=== PATIENT | male | born 1945 | race Caucasian/White ===

== ENCOUNTER 2016-11-29 09:52 | Outpatient (CLI) | payer MEDICARE ==
[2016-11-29 12:28] LABS: Hematocrit 43.3 % (42.0-52.0); Mean Platelet Volume 8.1 fL (7.4-10.4); Red Blood Cell (RBC) Count 4.97 mill/uL (4.70-6.10); White Blood Cell (WBC) Count 7.4 thou/uL (4.8-10.8)
[2016-11-29 12:31] LABS: Prothrombin Time 13.3 SEC (12.0-14.7)
[2016-11-29 12:41] LABS: Anion Gap 17 mmol/L (10-20); BUN (Urea Nitrogen) 18 mg/dL (8.4-25.7); Calc. Creatinine Clearance 0 mL/min (70-130); Calcium 9.9 mg/dL (7.8-10.44); Carbon Dioxide 26 mmol/L (23-31); Chloride 101 mmol/L (98-107); Estimated GFR-MDRD 44
[2016-11-29 13:05] LABS: Bilirubin Negative (Negative); Blood, Urine Trace (Negative); Glucose, Urine (Dipstick) Negative (Negative); Ketone, Urine Trace mg/dL (Negative); Nitrite Negative (Negative); Protein, Urine (Dipstick) Negative (Neg-Trace)
[2016-11-29 13:10] LABS: Bacteria/HPF None Seen HPF (None Seen); Hyaline Casts/LPF 4-6 HYALINE CAST LPF (0-3 Hyaline); RBC/HPF 0-3 HPF (0-3); Squamous Epithelial 0-3 HPF (0-3)
--- NOTE | 2016-11-29 14:57 | CT ---
CT ABDOMEN AND PELVIS PERFORMED WITHOUT CONTRAST ENHANCEMENT: HISTORY: Right flank pain. FINDINGS: ABDOMEN: The lung bases show some linear atelectasis in both bases. A small hiatal hernia is noted . The liver, spleen, pancreas, and gallbladder regions appear unremarkable on this noncontrast study. The right and left adrenal glands are normal in appearance. There are numerous bilateral punctate r enal calculi and right-sided hydronephrosis and hydroureter, related to two calculi at the right ure terovesical junction. One is 1 to 2 mm in size. The other measures approximately 4 mm. There is right-sided hydronephrosis and hydroureter related to this. There is no significant periaortic or mesenteric adenopathy. PELVIS: A fat-containing paraumbilical hernia is noted. There is some sigmoid diverticulosis noted . The appendix is normal. IMPRESSION: Bilateral renal calculi with right-sided hydronephrosis and hydroureter, related to two calculi loca nathen at the right ureterovesical junction. POS: [facility]
--- NOTE | 2016-11-29 16:48 | EKG ---
Test Reason : Blood Pressure : / mmHG Vent. Rate : 073 BPM Atrial Rate : 073 BPM P-R Int : 182 ms QRS Dur : 090 ms QT Int : 392 ms P-R-T Axes : 039 006 022 degrees QTc Int : 431 ms Normal sinus rhythm Inferior infarct , age undetermined Abnormal ECG When compared with ECG of 20-JAN-2016 07:05, Inferior infarct is now Present Confirmed by DR. Milka GLASER ([id number]) on 11/29/2016 4:47:56 PM Referred By: ROGERIO Confirmed By:DR. Milka GLASER
[2016-12-02 13:16] LABS: CA Oxalate Monohydrate 97 % (.); Color Brown (.)
== END 2016-11-29 09:53 | disposition home or self-care (01) ==
LOC: CT 09:52
PROVIDERS: ATTEND Urology
DX: N13.2 Hydronephrosis with renal and ureteral calculous obstruction (principal)
CPT/HCPCS: 74176; 80048; 81001; 82365; 85027; 85610; 85730; 87086; 88300; 93005; 93010

== ENCOUNTER 2016-12-01 07:15 | Day surgery (SDC) | payer MEDICARE ==
[2016-11-29 10:19] VITALS: BMI 28.7
[2016-12-01] MEDS ORDERED: Iothalamate Meglumine 60% 50 ML VIAL FS ONE (08:09)
[2016-12-01] MEDS ORDERED: Levofloxacin 500 mg/D5W 100 ml Premix Bag ONE (09:00)
--- NOTE | 2016-12-01 09:36 | RAD ---
RADIOGRAPH ABDOMEN ONE VIEW SUPINE: Date: 12-01-16 History: Bilateral calculus of kidney. Comparison: No prior KUBs. FINDINGS: There are many small bilateral renal calculi, a few mm in size each. Bowel gas pattern is normal. No evidence of organomegaly. Multiple tiny calcifications in the left hemipelvis represent phleboliths plus a prostatic calcification. There is an approximately 3 mm calcification in the right hemipelvi s that corresponds to the calculus at the right UVJ demonstrated on the CT of 11-29-16. IMPRESSION: 1. A 3 mm obstructing calculus at the right ureterovesical junction. 2. Bilateral nephrolithiasis (ICD-10 terminology: Bilateral calculus of kidney). POS: [facility]
[2016-12-01] MEDS ORDERED: Fentanyl 100 MCG/2 ML VIAL ONE (10:23)
[2016-12-01] MEDS ORDERED: ePHEDrine/0.9% NaCl/PF SYRINGE 50 mg/10 ml ONE (10:43)
[2016-12-01] MEDS ORDERED: Ondansetron HCl/PF 4 MG/2 ML Vial ONE (10:43)
[2016-12-01] MEDS ORDERED: Succinylcholine Chloride 20 MG/ML 10 ml SYRINGE FS ONE (10:43)
[2016-12-01] MEDS ORDERED: Propofol 200 MG/20 ML VIAL ONE (10:43)
[2016-12-01] MEDS ORDERED: Metoclopramide HCl 10 MG/2 ML VIAL ONE (10:43)
[2016-12-01] MEDS ORDERED: SUGAMMADEX SODIUM 500 MG/5 ML VIAL ONE (11:47)
[2016-12-01] MEDS ORDERED: Phenazopyridine HCl 97.5 MG TABLET ONE (12:08)
--- NOTE | 2016-12-01 12:58 | OP ---
DATE OF SERVICE: 12/01/2016 PREOPERATIVE DIAGNOSES: 1. A 71-year-old male with history of right distal ureteral calculi 4 mm, 1 mm at the level of the UVJ with failed medical expulsion therapy. 2. Multiple bilateral renal lithiasis. Right renal calculi punctate approximately 15 in number, largest approximately 2-3 mm in the right mid to lower pole, left approximately 12 punctate renal lithiasis, left upper pole 3 mm , left lower pole 6 mm x 2. 3. History of bilobar hyperplasia of the prostate, status post prostate biopsy negative for malignancy due to elevated PSA. POSTOPERATIVE DIAGNOSES: 1. A 71-year-old male with history of right distal ureteral calculi 4 mm, 1 mm at the level of the UVJ with failed medical expulsion therapy. 2. Multiple bilateral renal lithiasis. Right renal calculi punctate approximately 15 in number, largest approximately 2-3 mm in the right mid to lower pole, left approximately 12 punctate renal lithiasis, left upper pole 3 mm , left lower pole 6 mm x 2. 3. History of bilobar hyperplasia of the prostate, status post prostate biopsy negative for malignancy due to elevated PSA. PROCEDURES: Cystoscopy, right retrograde pyelogram, balloon dilation of the right distal ureter, basket extraction of distal ureteral calculi x2, flexible ureteroscopy, pyeloscopy, laser lithotripsy of small renal calculi, 6 x 26 double-J ureteral stent placement with distal tail in situ. SURGEON: Anika Leung D.O. ANESTHESIA: General. COMPLICATIONS: None apparent. SPECIMEN: Stones for chemical analysis. INTRAOPERATIVE FINDINGS: 1. Wide caliber bulbar urethral stricture approximately 18-20 [place], nonobstructing. 2. Bilobar hyperplasia, moderate to severe obstruction. 3. Bladder without evidence of lesions, no bladder stones. 4. Right distal ureteral calculi x2, multiple Hira plaque consistent with recurrent stone former. SURGEON: Anika Leung D.O. ANESTHESIA: General. COMPLICATIONS: None apparent. DISPOSITION: To the recovery room in stable condition. SPECIMEN: Stone for chemical analysis. INDICATIONS FOR THE PROCEDURE AND HISTORY: Mr. Taylor is a 71-year-old male with history of gout, diabetes, hypertension, who presented for evaluation of right flank pain as he was travelling in the [place] region and had a CT scan at an outside region demonstrating multiple renal lithiasis with right distal ureteral calculi. The patient had passed a small stone, unlikely the stone presenting, restaging CT demonstrated right distal ureteral calculi x2, 4 mm, 1 mm respectively with multiple bilateral renal calculi, dimensions as above. The patient desired to proceed with ureteroscopy, laser lithotripsy due to failed medical expulsion therapy. Risks and complications including, but not limited to, bleeding, pain, infection, injury to adjacent organs, urosepsis reviewed. All questions were answered to his satisfaction and he desired to proceed. DESCRIPTION OF THE PROCEDURE: After an informed consent is signed, the patient is taken to the operating room, placed in a dorsal lithotomy position with the genital area prepped and draped in the usual surgical sterile fashion. A 21- [place]gas[place] cystoscope was utilized, which demonstrated wide caliber bulbar stricture approximately 18 [place], which I was able to pass without difficulty. Moderate to severe obstructing bilobar hyperplasia of the prostate was noted. Bladder was entered with no evidence of bladder stone. UO's are approximately 5 mm from the bladder neck. Upon placing an open-ended catheter, wire to intubate the right UO small punctate stone did exit the UO; however, this is not the stone nidus that is consistent with the CT scan. It required an angle Glidewire to intubate the right ureter due to the angle, this was passed to the level of the right upper pole without difficulty and subsequently switched to a 0.35 sensor wire. We did then dilate the distal ureter, ureteral orifice with a 12 [place] 4 cm [employer] balloon dilator. Subsequently, we performed a rigid ureteroscope, which demonstrated the stone nidus a 4 mm, which was basket extracted uneventfully as the ureter was dilated. We then surveyed the ureter distally which demonstrated no further stone debris with the rigid ureteroscope. A 0.35 Super Stiff wire was then placed into the right upper pole, and at this time, an 11/13 [place]que x 46 cm navigator was passed to the level of the proximal ureter and we surveyed the collecting system as he has multiple stones. Most of the stones were unable to be treated as they were within the renal papilla consistent with Hira's plaques. I did see 3 mm stone nidus which was laser lithotripsied with 200 micron laser fiber at dust dust-like setting. There appeared to be some clot at the level of the wire in the upper pole. I did extract the clot with a 0 tip nitinol basket. The wire did traverse somewhat into the renal papilla; however, no active bleeding or oozing was appreciated. A 6 x 26 double-J ureteral stent was then passed without difficulty with the proximal coil in the mid to lower pole, adequate redundancy in the bladder. He tolerated the procedure well. He will follow up with me next for a cysto stent pull. A KUB will be obtained one hour prior to appointment. The patient will be discharged with [place] refill 7.5/325 one to two every 6-8 hours p.r.n. He is to continue his Flomax, Avodart, AZO p.r.n., Colace p.r.n., ciprofloxacin until followup appointment. KATHERINE
--- NOTE | 2016-12-01 16:00 | RAD ---
RETROGRADE IVP: History: 71-year-old male with history of additional right ureteral calculus. FINDINGS: Multiple portable fluoroscopic spot images are presented for interpretation. Initial patient's librarian films demonstrates what is probably distal right ureteral calculus. A small amount of contrast is injected into the right ureter but is not completely filled. Following contrast injectio n a wire was placed and a right ureteral stent was placed. IMPRESSION: Probable distal right ureteral calculus on the patient's librarian film. Placement of a right ureteral stent. POS: [facility]
== END 2016-12-01 13:35 | disposition home or self-care (01) ==
LOC: SDC 07:15
PROVIDERS: ATTEND Urology
PROC: 0TF38ZZ Fragmentation in Right Kidney Pelvis, Via Natural or Artificial Opening Endoscopic (ICD-10-PCS; principal; 2016-12-01)
PROC: 0T768DZ Dilation of Right Ureter with Intraluminal Device, Via Natural or Artificial Opening Endoscopic (ICD-10-PCS; 2016-12-01)
PROC: 0TC08ZZ Extirpation of Matter from Right Kidney, Via Natural or Artificial Opening Endoscopic (ICD-10-PCS; 2016-12-01)
PROC: 0TH98YZ Insertion of Other Device into Ureter, Via Natural or Artificial Opening Endoscopic (ICD-10-PCS; 2016-12-01)
DX: N20.2 Calculus of kidney with calculus of ureter (principal); N35.9 Urethral stricture, unspecified; N40.0 Benign prostatic hyperplasia without lower urinary tract symptoms; M10.9 Gout, unspecified; E11.9 Type 2 diabetes mellitus without complications; H91.90 Unspecified hearing loss, unspecified ear; I10 Essential (primary) hypertension; Z79.84 Long term (current) use of oral hypoglycemic drugs; Z79.899 Other long term (current) drug therapy; Z98.890 Other specified postprocedural states; Z87.442 Personal history of urinary calculi; Z87.891 Personal history of nicotine dependence
CPT/HCPCS: 52344; 52356; 74000; 74420; 82365; 88300; C1758; C1769; J1956; J2405; J2704; J2765; J3010; Q9961

== ENCOUNTER 2016-12-09 07:15 | Outpatient (CLI) | payer MEDICARE ==
--- NOTE | 2016-12-09 09:50 | RAD ---
FRONTRAL VIEW ABDOMEN; Date: 12/09/16 INDICATION: Ureteral stone. FINDINGS: There is a double-J right ureteral stent appropriately positioned on the provided frontal view. Ther e are round densities overlying the pelvis. Multiple calcifications overlie the left renal shadow. R ight renal shadow is largely obscured by bowel content. IMPRESSION: 1. Interval placement of right ureteral stent when comparing to 12/01/16. 2. Redemonstration of multiple left renal calculi. 3. Previously described punctate density at the right hemipelvis is not visualized on this exam. POS: [facility]
== END 2016-12-09 07:16 | disposition home or self-care (01) ==
LOC: RAD 07:15
PROVIDERS: ATTEND Urology
DX: N20.1 Calculus of ureter (principal); N20.0 Calculus of kidney
CPT/HCPCS: 74000

== ENCOUNTER 2017-07-05 13:17 | Outpatient (CLI) | payer MEDICARE ==
--- NOTE | 2017-07-05 15:36 | RAD ---
FRONTAL VIEW ABDOMEN KUB SERIES 2 VIEWS: Date: 07/05/17 INDICATION: Calculus of kidney. Reference made to 12/09/16. FINDINGS: There has been removal of the prior right ureteral stent. Numerous calcifications overlie each renal shadow. There are stable appearing calcific densities of the left hemipelvis, which may be related to phleboliths. Moderate retained fecal material in the colon is present. There is osseous degenerative change. IMPRESSION: Numerous calcific densities overlying each renal shadow, indicating nephrolithiasis. POS: [facility]
--- NOTE | 2017-07-05 15:38 | ULT ---
RENAL ULTRASOUND: History: Renal calculus. Correlation: Abdominal CT 11-29-16 which showed numerous bilateral renal calculi. FINDINGS: Both kidneys measure approximately 10 cm in length. Cortical echogenicity and cortical thickness appe ars normal. No evidence of hydronephrosis. There are numerous echogenic foci seen in the upper collec ting structures of both kidneys which correspond to the prior CT and are consistent with numerous lia ateral renal calculi. The urinary bladder shows mild distention. I cannot exclude mild bladder wall thickening. The prostat e appears to be enlarged. Ureteral jets were identified bilaterally within the bladder. IMPRESSION: Evidence of numerous bilateral renal calculi corresponding to the previous CT. POS: [facility]
== END 2017-07-05 13:18 | disposition home or self-care (01) ==
LOC: ULT 13:17
PROVIDERS: ATTEND Urology
DX: Z12.5 Encounter for screening for malignant neoplasm of prostate (principal); N20.0 Calculus of kidney
CPT/HCPCS: 74018; 76770; 80048; 81003; 83970; 84550; 87086; G0103

== ENCOUNTER 2018-05-30 10:57 | Outpatient (CLI) | payer MEDICARE ==
--- NOTE | 2018-05-30 12:18 | RAD ---
SUPINE ABDOMEN: HISTORY: Benign prostate hyperplasia. UTI symptoms. COMPARISON: 07/05/2017 FINDINGS: There is a large amount of stool throughout the colon. The bowel content obscures renal outlines. T here are numerous small calcifications overlying both kidneys, which appear stable in size and number when compared to the prior study. Peripheral phleboliths in the pelvis are stable. IMPRESSION: Renal calcifications appear stable from prior examination. POS: [facility]
[2018-05-30 12:48] LABS: Bilirubin Negative (Negative); Blood, Urine Negative (Negative); Clarity CLEAR (Clear); Glucose, Urine (Dipstick) Negative (Negative); Leukocyte Negative (Negative); Nitrite Negative (Negative); Protein, Urine (Dipstick) Trace mg/dL (Neg-Trace); Specific Gravity, Urine 1.012 (1.002-1.036); pH, Urine 6.5 (5.0-9.0)
[2018-05-30 12:50] LABS: Bacteria/HPF None Seen HPF (None Seen); Hyaline Casts/LPF 0-3 HYALINE CAST LPF (0-3 Hyaline); RBC/HPF 0-3 HPF (0-3); Squamous Epithelial 0-3 HPF (0-3); WBC/HPF 0-3 HPF (0-3)
[2018-05-30 13:00] LABS: Anion Gap 15 mmol/L (10-20); BUN (Urea Nitrogen) 12 mg/dL (8.4-25.7); Calc. Creatinine Clearance 0 mL/min (70-130); Calcium 10.4 mg/dL (7.8-10.44); Carbon Dioxide 26 mmol/L (23-31); Chloride 105 mmol/L (98-107); Estimated GFR-MDRD 62; Glucose 106 mg/dL (83-110); Sodium 142 mmol/L (136-145)
== END 2018-05-30 10:58 | disposition home or self-care (01) ==
LOC: RAD 10:57
PROVIDERS: ATTEND Urology
DX: N40.1 Benign prostatic hyperplasia with lower urinary tract symptoms (principal); R39.14 Feeling of incomplete bladder emptying; N28.89 Other specified disorders of kidney and ureter
CPT/HCPCS: 74018; 80048; 81001; 87086

== ENCOUNTER 2018-07-04 17:46 | Outpatient (CLI) | payer MEDICARE ==
[2018-07-04 18:55] LABS: Hemoglobin 14.2 g/dL (14.0-18.0); Mean Corpuscular HGB CONC 33.2 g/dL (32.0-36.0); Mean Corpuscular Volume 87.5 fL (78.0-98.0); Mean Platelet Volume 7.9 fL (7.4-10.4); Platelet Count 162 thou/uL (130-400); RBC Distribution Width 12.4 % (11.5-14.5); White Blood Cell (WBC) Count 7.2 thou/uL (4.8-10.8)
[2018-07-04 19:04] LABS: Prothrombin Time 12.9 SEC (12.0-14.7)
[2018-07-04 19:13] LABS: Anion Gap 15 mmol/L (10-20); BUN (Urea Nitrogen) 18 mg/dL (8.4-25.7); Calc. Creatinine Clearance 0 mL/min (70-130); Calcium 10.1 mg/dL (7.8-10.44); Carbon Dioxide 23 mmol/L (23-31); Chloride 106 mmol/L (98-107); Estimated GFR-MDRD 49; Glucose 132 mg/dL (83-110); Potassium 4.1 mmol/L (3.5-5.1); Sodium 140 mmol/L (136-145)
== END 2018-07-04 17:47 | disposition home or self-care (01) ==
LOC: LABBT 17:46
PROVIDERS: ATTEND Urology
DX: Z01.818 Encounter for other preprocedural examination (principal); N20.1 Calculus of ureter
CPT/HCPCS: 80048; 81001; 85027; 85610; 85730; 87086; 93005; 93010

== ENCOUNTER 2018-07-05 08:47 | Day surgery (SDC) | payer MEDICARE ==
[2018-07-04 17:56] VITALS: BMI 28.3
[2018-07-05] MEDS ORDERED: Levofloxacin 500 mg/D5W 100 ml Premix Bag ONE (10:37)
[2018-07-05] MEDS ORDERED: Iothalamate Meglumine 60% 50 ML VIAL FS ONE (11:34)
[2018-07-05] MEDS ORDERED: Fentanyl 100 MCG/2 ML VIAL ONE (11:45)
[2018-07-05] MEDS ORDERED: Phenazopyridine HCl 97.5 MG TABLET ONE (12:42)
[2018-07-05] MEDS ORDERED: Lidocaine 1% PF 5 ML VIAL ONE (14:56)
[2018-07-05] MEDS ORDERED: Ondansetron PF 4 MG/2 ML Vial ONE (14:56)
[2018-07-05] MEDS ORDERED: PROPOFOL 200 MG/20 ML VIAL ONE (14:56)
--- NOTE | 2018-07-05 15:19 | RAD ---
LEFT RETROGRADE PYELOGRAM: Date: 07/05/18 HISTORY: Stent and renal stones. FINDINGS/IMPRESSION: Two spot fluoroscopic images from a left-sided retrograde pyelogram demonstrate contrast opacificatio n of the pelvicaliceal system and portions of the ureter on the left and placement of a left ureteral stent. POS: [facility]
--- NOTE | 2018-07-05 19:21 | OP ---
DATE OF PROCEDURE: 07/05/2018 PREOPERATIVE DIAGNOSES: 1. A 73-year-old male with history of recurrent kidney stones with left flank pain due to 6 mm left distal ureteral calculi at the level of S2-S3 ureter at an outside facility. 2. Bilateral nonobstructing multiple renal calculi, dimensions measuring about 2 to [address] demonstrated left punctate renal lithiasis about 12 in number, which are mostly punctate upper pole 3 mm, lower pole 6 mm, about 15 punctate stones in the right kidney, largest measuring right mid pole 2 to 3 mm. 3. Benign prostatic hypertrophy. POSTOPERATIVE DIAGNOSES: 1. A 73-year-old male with history of recurrent kidney stones with left flank pain due to 6 mm left distal ureteral calculi at the level of S2-S3 ureter at an outside facility. 2. Bilateral nonobstructing multiple renal calculi, dimensions measuring about 2 [address] demonstrated left punctate renal lithiasis about 12 in number, which are mostly punctate upper pole 3 mm, lower pole 6 mm, about 15 punctate stones in the right kidney, largest measuring right mid pole 2 to 3 mm. 3. Benign prostatic hypertrophy. PROCEDURES PERFORMED: Cystoscopy, left retrograde pyelogram, 6 x 26 double-J ureteral stent. ANESTHESIA: General. COMPLICATIONS: None apparent. DISPOSITION: To recovery room in stable condition. INTRAOPERATIVE FINDINGS: 1. Subtle filling defect in the level of S2, mid SI joint consistent with stone seen on CT at an outside facility with mild hydronephrosis. 2. Bilobar hyperplasia of the prostate with [id number] obstruction with no evidence of intravesical median lobe, ureteral orifices about 3 mm away from the bladder neck. 3. Nonobstructing distal penile urethral stricture about 14/16-[place] caliber, second bulbar stricture about 14 /16-[place] caliber in which the scope was able to be passed without difficulty. Subsequent 16-[place] catheter and now passed with ease. INDICATIONS FOR PROCEDURE AND HISTORY: Mr. Taylor is a 73-year-old male with history of BPH, history of elevated PSA, prostate biopsy negative for malignancy on dual medical therapy with history of recurrent kidney stones. He has numerous bilateral renal stones, most of which are punctate as dimensions above. He was on surveillance. He presented to an outside facility in [place], [place], and found to have a 6 mm left distal ureteral stone at the level of the S2-S3 ureter causing moderate hydronephrosis with bilateral renal lithiasis measuring 2 to [address] scan. He presents today for cysto stent placement. As there is no urinalysis culture available, informed patient that we will stent due to discomfort and will be performing a staged ureteroscopy, laser lithotripsy at a later date. Risks and complications of the procedure were reviewed with him in detail including, but not limited to, bleeding, pain, infection, injury to adjacent organs, urosepsis. Questions answered to his satisfaction and desired to proceed without reservation. DESCRIPTION OF PROCEDURE: After an informed consent was signed, the patient was taken to the operating room, placed in a dorsal lithotomy position with the genital area prepped and draped in the usual surgical sterile fashion. A 21-[place] cystoscope was passed. There was some tortuosity of the proximal penile urethra. However, we passed the scope without difficulty. At the level of distal penile urethra, there was a 14/16-[place] caliber stricture, which I was able to pass without difficulty, second bulbar stricture same caliber 14/16-[place]. Scope was easily maneuvered and not with ease. Prostatic urethra demonstrated [id number] obstruction with bilobar hyperplasia with high median bar. There was no intravesical median lobe. Ureteral orifices are about 3 mm away from the bladder neck. There was some oozing from the prostate with the passage of the scope, however, not hindering any visualization. The UOs were identified in normal anatomical location. A 5-[place] open-ended catheter was utilized to perform retrograde pyelogram, which demonstrated mild dilation of the proximal ureter and hydronephrosis mild. There was a subtle filling defect at the S2-S3 ureter consistent with stone. A 0.35 Sensor wire was passed into the left mid pole and a 6 x 26 double-J ureteral stent was passed. There was some resistance passing the stent, especially the very distal end, however, it did pass with adequate coil in the bladder and the left mid to upper pole. He tolerated the procedure well and transported to the recovery room in stable condition. He is discharged with [place] 5/325 #30, 1 to 2 p.o. q.6 hours p.r.n., ciprofloxacin one p.o. b.i.d. x7 days, Colace b.i.d., Azo p.r.n. We will follow his urine culture, he will see me on Tuesday, July 10. If urine culture negative, we will proceed with ureteroscopy, laser lithotripsy, tentatively scheduled for next Tuesday. Job ID: [id number] [facility]ITALSwapna
== END 2018-07-05 14:20 | disposition home or self-care (01) ==
LOC: SDC 08:47
PROVIDERS: ATTEND Urology
PROC: 0T778DZ Dilation of Left Ureter with Intraluminal Device, Via Natural or Artificial Opening Endoscopic (ICD-10-PCS; principal; 2018-07-05)
DX: N13.2 Hydronephrosis with renal and ureteral calculous obstruction (principal); N40.1 Benign prostatic hyperplasia with lower urinary tract symptoms; N13.8 Other obstructive and reflux uropathy; N35.912 Unspecified bulbous urethral stricture, male; M10.9 Gout, unspecified; I12.9 Hypertensive chronic kidney disease with stage 1 through stage 4 chronic kidney disease, or unspecified chronic kidney disease; E11.22 Type 2 diabetes mellitus with diabetic chronic kidney disease; N18.3 Chronic kidney disease, stage 3 (moderate); H91.90 Unspecified hearing loss, unspecified ear; Z79.84 Long term (current) use of oral hypoglycemic drugs; Z79.899 Other long term (current) drug therapy
CPT/HCPCS: 52332; 74420; C1758; C1769; J1956; J2001; J2405; J2704; J3010; Q9961

== ENCOUNTER 2018-07-10 15:48 | Outpatient (CLI) | payer MEDICARE ==
[2018-07-10 17:17] LABS: Anion Gap 17 mmol/L (10-20); BUN (Urea Nitrogen) 16 mg/dL (8.4-25.7); Calc. Creatinine Clearance 0 mL/min (70-130); Calcium 10.3 mg/dL (7.8-10.44); Carbon Dioxide 24 mmol/L (23-31); Chloride 103 mmol/L (98-107); Estimated GFR-MDRD 57; Glucose 116 mg/dL (83-110); Potassium 4.3 mmol/L (3.5-5.1); Sodium 140 mmol/L (136-145)
[2018-07-10 17:18] LABS: Bilirubin Small (Negative); Blood, Urine Large (Negative); Clarity CLOUDY (Clear); Glucose, Urine (Dipstick) Negative (Negative); Leukocyte Small (Negative); Specific Gravity, Urine 1.022 (1.002-1.036)
[2018-07-10 17:24] LABS: Bacteria/HPF None Seen HPF (None Seen); Hyaline Casts/LPF 0-3 HYALINE CAST LPF (0-3 Hyaline); Pathc Cast-AUWi Flag 0.27 (0-2.49); RBC/HPF GREATER THAN 50-TNTC HPF (0-3); Squamous Epithelial 0-3 HPF (0-3)
[2018-07-10 17:42] LABS: Nitrite Unable to Interpret (Negative); Protein, Urine (Dipstick) Unable to Interpret mg/dL (Neg-Trace)
== END 2018-07-10 15:49 | disposition home or self-care (01) ==
LOC: LABBT 15:48
PROVIDERS: ATTEND Urology
DX: Z01.812 Encounter for preprocedural laboratory examination (principal); N40.1 Benign prostatic hyperplasia with lower urinary tract symptoms; M10.9 Gout, unspecified; R39.14 Feeling of incomplete bladder emptying; E13.9 Other specified diabetes mellitus without complications; Z87.442 Personal history of urinary calculi; Z12.5 Encounter for screening for malignant neoplasm of prostate; N35.919 Unspecified urethral stricture, male, unspecified site; N20.2 Calculus of kidney with calculus of ureter
CPT/HCPCS: 80048; 81001; 87086

== ENCOUNTER 2018-07-12 05:58 | Day surgery (SDC) | payer MEDICARE ==
[2018-07-10 16:10] VITALS: BMI 28.6
[2018-07-12] MEDS ORDERED: Fentanyl 100 MCG/2 ML VIAL ONE ×3 (06:20→10:27)
[2018-07-12] MEDS ORDERED: Iothalamate Meglumine 60% 50 ML VIAL FS ONE (06:51)
[2018-07-12] MEDS ORDERED: Levofloxacin 500 mg/D5W 100 ml Premix Bag ONE (07:11)
--- NOTE | 2018-07-12 08:37 | RAD ---
KUB: COMPARISON: 05/30/2018. HISTORY: Kidney stones. FINDINGS: A single view of the abdomen shows a nonspecific, nonobstructed bowel gas pattern. There is a left u reteral stent. Calcifications project over both renal shadows measuring up to 4 mm in size. There i s a questionable 4 mm calcification adjacent to the distal aspect of the left ureteral stent. This i s only seen on 1 view and could be artifactual. IMPRESSION: 1. Bilateral nephrolithiasis. 2. Possible left distal ureteral calcification. POS: [facility]
--- NOTE | 2018-07-12 09:37 | RAD ---
Exam: Retrograde pyelogram: HISTORY: Bilateral renal calculi. Left ureteral stent. COMPARISON: 07/05/2018. FINDINGS: The previously noted small left ureteral calculus is not definitely distinctly identified. Left urete ral stent placement. Bilateral renal calculi. Continued short-term follow-up. IMPRESSION: Left ureteral manipulation and stent replacement.
[2018-07-12] MEDS ORDERED: Phenazopyridine HCl 97.5 MG TABLET ONE (10:24)
[2018-07-12] MEDS ORDERED: HYDROcodone/Acetaminophen 5/325 mg Tablet ONE (11:19)
--- NOTE | 2018-07-12 14:18 | OP ---
DATE OF PROCEDURE: 07/12/2018 PREOPERATIVE DIAGNOSES: 1. A 73-year-old male with history of recurrent kidney stone, presented with a left 6 mm mid ureteral calculi at the level of S2-S3 ureter. 2. History of multiple bilateral renal calculi: Prior CT demonstrating approximately 15 stone nidus in the right kidney, largest stones measuring 2 to 3 mm, largest in the lower pole about 6 mm, left multiple renal lithiasis x2, punctate 2 to 3 mm, lower pole 6 mm. Prostate volume 85 g on transrectal ultrasound. 3. History of nonobstructing multiple bulbar stricture. 4. Bilobar hyperplasia of the prostate. POSTOPERATIVE DIAGNOSES: 1. A 73-year-old male with history of recurrent kidney stone, presented with a left 6 mm mid ureteral calculi at the level of S2-S3 ureter. 2. History of multiple bilateral renal calculi: Prior CT demonstrating approximately 15 stone nidus in the right kidney, largest stones measuring 2 to 3 mm, largest in the lower pole about 6 mm, left multiple renal lithiasis x2, punctate 2 to 3 mm, lower pole 6 mm. Prostate volume 85 g on transrectal ultrasound. 3. History of nonobstructing multiple bulbar stricture. 4. Bilobar hyperplasia of the prostate. PROCEDURE PERFORMED: Cystoscopy, left retrograde pyelogram, 6 x 26 double-J ureteral stent exchange, retrograde pyelogram, rigid ureteroscopy, laser lithotripsy of mid ureteral calculi, basket extraction of stone nidus, flexible pyeloscopy, laser lithotripsy of multiple left renal calculi, basket extraction of stone fragments. ANESTHESIA: General. COMPLICATIONS: None apparent. SPECIMEN: Multiple stone fragments for chemical analysis. INTRAOPERATIVE FINDINGS: 1. Bilobar hyperplasia of the prostate, [id number] obstruction. 2. Nonobstructing multiple bulbar urethral stricture, caliber about 14/16-German caliber, able to pass the scope without significant issues. 3. Left mid ureteral calculi at the level of S2-S3 ureter, impacted with mucosal adherence. 4. Multiple left Hira's plaque consistent with recurrent stone former, multiple renal lithiasis, largest in the lower pole about 6 to 8 mm. INDICATIONS FOR PROCEDURE AND HISTORY: Mr. Taylor is a 73-year-old male with history of gout, diabetes, hypertension, BPH, bulbar stricture. He previously underwent ureteroscopy, laser lithotripsy, and was provided a work-in appointment as he presented to an outside facility in [place] and found to have a migrated left distal ureteral stone to level of S2-S3 ureter. He has previous multiple bilateral renal calculi noted. He underwent ureteral stent as urine culture was not finalized for ureteroscopy and presents today for ureteroscopy laser lithotripsy. Risks, complications, and indications of the procedure were reviewed with him in detail including, but not limited to, bleeding, pain, infection, injury to adjacent organs, urosepsis, stricture formation, injury to adjacent organs. Questions answered to his satisfaction. He desired to proceed without reservation. DESCRIPTION OF PROCEDURE: After an informed consent was signed, the patient was taken to the operating room, placed in a dorsal lithotomy position with the genital area prepped and draped in the usual surgical sterile fashion. A 21-German cystoscope was utilized for cystoscopy. Upon entering the urethra, there were again appreciating a large caliber 14/16-German bulbar urethral stricture in which I was able to pass without significant issues at all. Bilobar [id number] obstructing lateral lobes were noted with no evidence of intravesical median lobes. The UOs are about 3 to 4 mm proximal to the bladder neck. The previously placed ureteral stent was removed to the level of the meatus and a 0.035 Sensor wire was passed through the stent into the left upper pole. At this time, a rigid ureteroscopy was performed. As he was passively dilated, I was able to engage the stone at the level of S2-S3 ureter. However, the stone was challenging to treat as it had been impacted, with mucosal adherence. Using 200 micron laser fiber, we laser lithotripsied the stone gently off the mucosa and rendered it free. It did have significant inflammatory, adherence to it. Dust setting was utilized. Stone was rendered free from the mucosa and laser lithotripsied. Basket extraction of the stone nidus was performed. As we cleared his mid ureteral stone, we passed a 10-German dual-lumen access sheath to the level of the proximal ureter and a second safety wire 0.035 Super Stiff was passed. Subsequently, the dual-lumen access sheath was removed and an 11/13-German navigator was passed without difficulty to level of the proximal ureter UPJ. Flexible digital ureteroscope was then passed to the level of the renal pelvis, and we surveyed the collecting system. There were multiple stone nidus in the mid upper and lower pole. Many of the stones were papilla based consistent with Hira's plaque. There were stone nidus in the left mid and lower pole that we treated. The largest stone nidus in the lower pole x2 to 3, each measuring about 4 to 5 mm. I laser lithotripsied these, and basket extracted them. In the upper pole, he did have about 4 to 5 mm stone, which I laser lithotripsied as well. In the mid pole, he had stone nidus that I lasered as well. At the end of the procedure, what remained were dust-like caliber. There were stones that were adherent to the renal papilla. Those that were amenable to be extracted were extracted with a basket atraumatically. There were some stone niduses left; however, these were papilla based or too small to basket extract. We then negotiated our flexible ureteroscope distally down the ureter. There was a stone nidus in the proximal ureter, which we basket extracted rendering the ureter free of stone debris. No evidence of mucosal trauma, perforation was noted. The previous impacted ureteral stone site was without evidence of trauma. Stones were sent for chemical analysis. Bladder emptied. A 6 x 26 double-J ureteral stent was passed over the safety wire. All wires were then removed. Good coil was seen in the bladder and kidney. He tolerated the procedure well and transported to the recovery room in stable condition. He will be discharged with ciprofloxacin until followup appointment, refill for [place] 5/325 #30, Colace, azo [id number]. He is to continue his Avodart and Flomax for BPH. He will have a KUB 1 day before his appointment on Tuesday morning. If no gross evidence of ureteral stone nidus. We will perform cysto stent pull under local on . addendum. Patient unable to void postop. 700 mL of postvoid residual per nursing staff. 16 German Romano catheter was placed by me uneventfully. Attached to leg bag. He was advised to increase his Flomax twice a day continue Avodart. Voiding trial upon cystoscopy stent pull next [facility]: [id number] [facility]
== END 2018-07-12 15:38 | disposition home or self-care (01) ==
LOC: SDC 05:58
PROVIDERS: ATTEND Urology
PROC: 0TF48ZZ Fragmentation in Left Kidney Pelvis, Via Natural or Artificial Opening Endoscopic (ICD-10-PCS; principal; 2018-07-12)
PROC: 0TF78ZZ Fragmentation in Left Ureter, Via Natural or Artificial Opening Endoscopic (ICD-10-PCS; 2018-07-12)
PROC: 0T778DZ Dilation of Left Ureter with Intraluminal Device, Via Natural or Artificial Opening Endoscopic (ICD-10-PCS; 2018-07-12)
DX: N20.2 Calculus of kidney with calculus of ureter (principal); N40.1 Benign prostatic hyperplasia with lower urinary tract symptoms; N13.8 Other obstructive and reflux uropathy; N35.912 Unspecified bulbous urethral stricture, male; M10.9 Gout, unspecified; E78.5 Hyperlipidemia, unspecified; I12.9 Hypertensive chronic kidney disease with stage 1 through stage 4 chronic kidney disease, or unspecified chronic kidney disease; E11.22 Type 2 diabetes mellitus with diabetic chronic kidney disease; N18.3 Chronic kidney disease, stage 3 (moderate); Z79.84 Long term (current) use of oral hypoglycemic drugs; Z79.2 Long term (current) use of antibiotics; Z79.899 Other long term (current) drug therapy
CPT/HCPCS: 74018; 74420; 82365; 88300; C1758; C1769; J1956; J3010; Q9961

== ENCOUNTER 2018-07-19 08:39 | Outpatient (CLI) | payer MEDICARE ==
--- NOTE | 2018-07-19 10:28 | RAD ---
FRONTAL VIEW ABDOMEN AND SUPINE KUB: INDICATIONS: Urolithiasis. Followup. FINDINGS: On one of the two provided views, the prior calcific density is likely present, residing lateral to t he distal course of the left ureteral stent. Therefore, this is favored to reside external to the ur eter, on the basis of this exam. Multiple calcifications overlying each renal shadow are again seen. Phleboliths overly the inferior left hemipelvis. IMPRESSION: 1. Bilateral nephrolithiasis. 2. Calcific density resides lateral to the distal left ureteral stent and may account for the prior calcification, which was previously seen overlying the course of the left ureteral stent. POS: CET
== END 2018-07-19 08:40 | disposition home or self-care (01) ==
LOC: RAD 08:39
PROVIDERS: ATTEND Urology
DX: N20.0 Calculus of kidney (principal); Z96.0 Presence of urogenital implants
CPT/HCPCS: 74018

== ENCOUNTER 2018-07-19 09:08 | Inpatient (IN) | payer MEDICARE ==
[2018-07-19 10:00] LABS: #Eosinphils 0.3 thou/uL (0.0-0.7); #Lymphocytes 1.3 thou/uL (1.20-3.40); #Monocytes 0.6 thou/uL (0.11-0.59); #Neutrophils 7.6 thou/uL (1.40-6.50); %Basophils 0.1 % (0.0-1.0); %Eosinophils 2.7 % (0.0-10.0); %Lymphocytes 12.9 % (21.0-51.0); %Monocytes 6.2 % (0.0-10.0); %Neutrophils 78.2 % (42.0-75.0); Hemoglobin 15.4 g/dL (14.0-18.0); Mean Corpuscular HGB CONC 34.1 g/dL (32.0-36.0); Mean Corpuscular Volume 85.2 fL (78.0-98.0); Mean Platelet Volume 8.1 fL (7.4-10.4); Platelet Count 186 thou/uL (130-400); RBC Distribution Width 12.3 % (11.5-14.5); Red Blood Cell (RBC) Count 5.32 mill/uL (4.70-6.10); White Blood Cell (WBC) Count 9.7 thou/uL (4.8-10.8)
[2018-07-19] MEDS ORDERED: Morphine 4 MG/ML VIAL ONE (10:04)
[2018-07-19] MEDS ORDERED: Ondansetron PF 4 MG/2 ML Vial ONE (10:04)
--- NOTE | 2018-07-19 10:09 | CT ---
CT STONE PROTOCOL: HISTORY: Left-sided flank pain, kidney stones COMPARISON: 11/29/2016 FINDINGS: Absence of oral and IV contrast reduces the sensitivity of the exam particularly for the evaluation o f solid organs and bowel. Atelectatic changes at the lung bases are again seen. No calcified gallstones are seen. No free air o r free fluid is noted in the abdomen or pelvis. A normal-appearing appendix is noted. There is sigmoid diverticulosis. A small hiatal hernia is present. There are vascular calcifications without e vidence of abdominal aortic aneurysm. Degenerative changes are present in the spine. Bilateral renal calculi are present. There is a left-sided ureteral stent with peripelvic and periure teric inflammatory changes. There is a 8 mm calculus lateral to the distal loop of the left ureteral stent within the urinary bladder. There is [id number] left-sided hydroureteronephrosis . The prostate is enlarged. A Romano catheter is present in the urinary bladder. A small amount of free air is noted in the bladder. IMPRESSION: 1. Left-sided ureteral stent with periureteral inflammatory changes. Clinically correlate for UTI. 2. Bilateral renal calculi. 3. An 8 mm urinary bladder calculus lateral to the distal loop of the left ureteral stent. 4. Prostatic enlargement. 5. Sigmoid diverticulosis. 6. Small hiatal hernia.
[2018-07-19 10:28] LABS: ALT (SGPT) 16 U/L (8-55); AST (SGOT) 18 U/L (5-34); Albumin 4.4 g/dL (3.4-4.8); Alkaline Phosphatase 56 U/L (40-150); Anion Gap 17 mmol/L (10-20); BUN (Urea Nitrogen) 18 mg/dL (8.4-25.7); Bilirubin, Total 0.8 mg/dL (0.2-1.2); Calc. Creatinine Clearance 0 mL/min (70-130); Calcium 10.8 mg/dL (7.8-10.44); Carbon Dioxide 21 mmol/L (23-31); Chloride 103 mmol/L (98-107); Estimated GFR-MDRD 56; Globulin 3.3 g/dL (2.4-3.5); Glucose 129 mg/dL (83-110); Lipase 41 U/L (8-78); Potassium 4.1 mmol/L (3.5-5.1); Protein, Total 7.7 g/dL (5.8-8.1); Sodium 137 mmol/L (136-145)
[2018-07-19 11:00] LABS: Bilirubin Small (Negative); Blood, Urine Large (Negative); Clarity CLOUDY (Clear); Glucose, Urine (Dipstick) Negative (Negative); Leukocyte Moderate (Negative); Nitrite Positive (Negative); Protein, Urine (Dipstick) 300 mg/dL (Neg-Trace)
[2018-07-19 11:03] LABS: Bacteria/HPF None Seen HPF (None Seen); Hyaline Casts/LPF 0-3 HYALINE CAST LPF (0-3 Hyaline); RBC/HPF GREATER THAN 50-TNTC HPF (0-3); Squamous Epithelial 0-3 HPF (0-3)
[2018-07-19] MEDS ORDERED: cefTRIAXone\\ROCEPHIN 1 GM VIAL ONE ×3 (12:12→12:37)
[2018-07-19] MEDS ORDERED: Morphine 2 MG/ML SYRINGE SLOW IVP PRN (13:26)
[2018-07-19] MEDS ORDERED: Morphine 4 MG/ML VIAL SLOW IVP PRN (13:26)
[2018-07-19] MEDS ORDERED: hydrALAZINE 20 MG/ML VIAL SLOW IVP PRN ×2 (13:26)
[2018-07-19] MEDS ORDERED: Bisacodyl 10 MG SUPP PR PRN (13:26)
[2018-07-19] MEDS ORDERED: Phenazopyridine HCl 97.5 MG TABLET PO PRN (13:26)
[2018-07-19] MEDS ORDERED: diphenhydrAMINE 50 MG/ML VIAL IVP PRN (13:26)
[2018-07-19] MEDS ORDERED: Mag-Al 1200 mg/1200 mg/30 ML UDCUP PO PRN (13:26)
[2018-07-19] MEDS ORDERED: HYDROcodone/Acetaminophen 7.5/325 mg Tablet PO PRN ×2 (13:26)
[2018-07-19] MEDS ORDERED: Docusate Sodium 100 MG/10 ML UDCUP PO PRN (13:29)
[2018-07-19] MEDS ORDERED: Dextrose 50% Abboject 50 ML SYRINGE SLOW IVP PRN (13:31)
[2018-07-19] MEDS ORDERED: Insulin Regular 300 UNITS/3 ML VIAL SC PRN (13:31)
[2018-07-19] MEDS ORDERED: Dextrose 5% in Water 1,000 ML IV PRN (13:31)
[2018-07-19] MEDS: Sodium Chloride 0.9% 1,000 ML IV SCH ×2 (15:35→22:59)
[2018-07-19] MEDS: Meropenem 2 GM in Sodium Chloride 0.9% 100 ML IVPB SCH ×2 (16:13→23:00)
[2018-07-19] MEDS: metFORMIN 500 MG TAB PO SCH (16:18)
[2018-07-19] MEDS: HYDROcodone/Acetaminophen 7.5/325 mg Tablet PO PRN (19:08)
--- NOTE | 2018-07-19 19:41 | CON ---
DATE OF CONSULTATION: 07/19/2018 REASON FOR CONSULTATION: History of left lower quadrant abdominal pain, nausea. HISTORY OF PRESENT ILLNESS: Mr. Taylor is a 73-year-old male with history of gout, diabetes, hypertension, BPH with recurrent kidney stones. He was recently worked into my office as he presented to an outside facility and had left flank pain due to left distal ureteral calculi at S2-S3 level with moderate left hydronephrosis. He is known to have multiple bilateral renal calculi measuring caliber about 2 to 6 mm each. The right kidney was without evidence of hydronephrosis. He initially underwent stent. His urine culture was not finalized and subsequently underwent staged ureteroscopy, laser lithotripsy. As he has numerous left renal calculi, he desired treatment of his renal calculi as well. I did proceed treating his multiple renal calculi, laser lithotripsied and basket extracted. He has multiple Hira plaques, consistent with punctate renal nidus and moreover not amenable to treatment as they are in the renal papilla; however, those that were amendable to be treated were treated. He was scheduled for KUB today, with subsequent stent pull tomorrow in my office; however, presented per my request to the emergency room as he called for his complaining of nausea, decreased oral intake, and feeling of malaise, and left lower quadrant and moreover suprapubic discomfort. Of note, after ureteroscopy and laser lithotripsy last week, he was unable to void. 700 mL of postvoid residual was found and therefore he was discharged with an indwelling Romano catheter and advised to increase his Flomax to twice a day. Labs obtained from the emergency room are grossly unremarkable. There is no significant leukocytosis or fever of concern. His lactic acid is within normal limits. UA does demonstrate positive nitrites with no bacteria as he has been on ciprofloxacin prophylactically for stent pull tomorrow. He was provided Rocephin from the emergency room and urine culture obtained. Currently, he was provided pain medication and is comfortable ; however, relates that his left lower quadrant discomfort is returning. He desires to be discharged home; however, I informed him that given his clinical status, it would be prudent to keep him in-house until culture finalized. He agrees. I encouraged him as well due to his history of diabetes. PAST MEDICAL HISTORY: 1. Diabetes; hypertension; hyperlipidemia; chronic kidney disease, followed by Dr. Ashton; gout; hard of hearing; history of multiple stones, recurrent kidney stones , two prior history of stone passage spontaneously. 2. BPH, demonstrating moderate/severe obstruction, bilobar hyperplasia. 3. Wide caliber bulbar stricture on cystoscopy, 18-20 Croatian, in which catheter was able to be passed with ease. SURGICAL HISTORY: 1. Rotator cuff. 2. Biceps tendon repair. 3. Left cyst removal. 4. Colonoscopy, polypectomy, no malignancy. 5. Foot surgery. 6. Transrectal ultrasound volume biopsy demonstrates 85 g. No malignancy, demonstrating chronic prostatitis. 7. Right L3-L4 microdiskectomy in January 2016. 8. On December 01, 2016, cysto, right retrograde, balloon dilation of ureter, extraction of ureteral stone, flexible ureteroscopy, pyeloscopy, 6 x 26 stent. 9. December 09, 2016, cysto, right stent pull. 10. Cysto, left retrograde, 6 x 26 stent, on July 05. 11. On July 12, 2018, cysto, left retrograde, stent exchange 6 x 26, flexible ureteroscopy, pyeloscopy, laser lithotripsy of multiple renal calculi and treatment of his ureteral stone. ALLERGIES: NO KNOWN DRUG ALLERGIES. HOME MEDICATIONS: Include; 1. Colace. 2. Azo. 3. Advil. 4. Metformin. 5. Rosuvastatin. 6. Dutasteride. 7. Flomax. 8. Uloric. 9. [place] 5/325. 10. Ciprofloxacin. 11. Flonase. SOCIAL HISTORY: Nonsmoker. 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 . PHYSICAL EXAMINATION: VITAL SIGNS: He is afebrile. Per emergency room, vital signs are stable. HEENT: Grossly unremarkable. HEART: Regular rate. LUNGS: Clear. ABDOMEN: Soft. Most of his discomfort is in the left suprapubic, mid suprapubic region. Romano catheter is draining with Azo, red tinged urine. : I did not do a SUNDAR today due to presenting complaint. Catheter is adequately secured and draining appropriately. PERTINENT LABS AND IMAGING: White count 9.7, hemoglobin 15, platelets 186. Creatinine 1.2. Lactic acid is normal at 2.0. UA; positive nitrites, greater than 50 rbc's, 7 to 10 wbc's, no epithelials, no bacteria. Culture has been sent from the emergency room and provided Rocephin. CT of the abdomen and pelvis, stone protocol: Left ureteral stent with peripelvic, periureteral inflammatory changes. There is an 8 mm stone lateral to the distal loop of the left ureteral stent, which is in the bladder. There is mild to moderate left hydroureteronephrosis, prostatic enlargement, Romano catheter in the bladder. Clinically correlate with fever or UTI. IMPRESSION AND PLAN: Mr. Taylor is a 73-year-old male with history of diabetes, gout, recurrent kidney stone, status post ureteroscopy, laser lithotripsy, treatment of his ureteral, left renal calculi. Repeat staging CT demonstrates stable right kidney stone, multiple left punctate renal stones, none of which are amenable to treatment, given stone size and papilla base. There is no evidence of ureteral calculi present with a stone fragmented debris within the bladder adjacent to the stent, not within the ureter. I will continue his indwelling urethral Romano catheter due to postop urinary retention, presenting suspicion for urinary tract infection. Continue BPH medications, Avodart, Flomax to b.i.d. until voiding status is stable. Await urine culture. We will provide broad-spectrum meropenem in-house. I advised the patient to stay in-house until urine culture finalized and his pain is improved. Although hydronephrosis can be due to a sending pyelitis pyelonephritis, possibility of suboptimal functioning ureteral stent, possible debris obstructing the stent cannot be completely excluded. I will monitor the patient clinically and reassess his parameters. Pending final urine culture possibility of restaging ureteroscopy versus stent exchange versus observation reviewed. Job ID: [id number] [facility]
[2018-07-19] MEDS: Docusate 100 MG CAP PO SCH (20:03)
[2018-07-19] MEDS: Rosuvastatin 20 MG TAB PO SCH (20:03)
[2018-07-19] MEDS: Tamsulosin HCl 0.4 MG CAP PO SCH (20:04)
[2018-07-19] MEDS: Famotidine/PF 20 mg/2ml Vial SLOW IVP SCH (20:04)
[2018-07-19] MEDS ORDERED: Zolpidem Tartrate 5 MG TAB PO PRN (21:00)
[2018-07-19] MEDS ORDERED: Tamsulosin HCl 0.4 MG CAP PO SCH (21:00)
[2018-07-20 05:49] LABS: #Eosinphils 0.3 thou/uL (0.0-0.7); #Lymphocytes 1.5 thou/uL (1.20-3.40); #Monocytes 0.7 thou/uL (0.11-0.59); #Neutrophils 4.8 thou/uL (1.40-6.50); %Basophils 0.4 % (0.0-1.0); %Eosinophils 4.1 % (0.0-10.0); %Lymphocytes 20.3 % (21.0-51.0); %Monocytes 10.1 % (0.0-10.0); %Neutrophils 65.1 % (42.0-75.0); Hemoglobin 13.6 g/dL (14.0-18.0); Mean Corpuscular HGB CONC 32.8 g/dL (32.0-36.0); Mean Corpuscular Hemoglobin 28.5 pg (27.0-31.0); Mean Corpuscular Volume 86.7 fL (78.0-98.0); Platelet Count 168 thou/uL (130-400); RBC Distribution Width 12.1 % (11.5-14.5); Red Blood Cell (RBC) Count 4.78 mill/uL (4.70-6.10); White Blood Cell (WBC) Count 7.3 thou/uL (4.8-10.8)
[2018-07-20 06:01] LABS: Anion Gap 9 mmol/L (10-20); BUN (Urea Nitrogen) 14 mg/dL (8.4-25.7); Calc. Creatinine Clearance 0 mL/min (70-130); Calcium 9.7 mg/dL (7.8-10.44); Carbon Dioxide 27 mmol/L (23-31); Chloride 106 mmol/L (98-107); Estimated GFR-MDRD 58; Glucose 107 mg/dL (83-110); Sodium 138 mmol/L (136-145)
[2018-07-20] MEDS: HYDROcodone/Acetaminophen 7.5/325 mg Tablet PO PRN (06:44)
[2018-07-20] MEDS: Sodium Chloride 0.9% 1,000 ML IV SCH ×2 (06:51→14:27)
[2018-07-20] MEDS ORDERED: Tamsulosin HCl 0.4 MG CAP PO SCH (09:00)
[2018-07-20] MEDS: Tamsulosin HCl 0.4 MG CAP PO SCH ×2 (09:20→21:28)
[2018-07-20] MEDS: Febuxostat 40 MG TAB PO SCH (09:20)
[2018-07-20] MEDS: Docusate 100 MG CAP PO SCH ×2 (09:20→21:28)
[2018-07-20] MEDS: Famotidine/PF 20 mg/2ml Vial SLOW IVP SCH ×2 (09:21→21:29)
[2018-07-20] MEDS: metFORMIN 500 MG TAB PO SCH ×2 (09:21→16:07)
[2018-07-20] MEDS: Dutasteride 0.5 MG CAP PO SCH (09:21)
--- NOTE | 2018-07-20 09:36 | PRG ---
DATE OF SERVICE: 07/20/2018 SUBJECTIVE: The patient continues to have lower quadrant, suprapubic discomfort ; however, this is improved. Denies chills, nausea, vomiting. States that he feels better with fluids. OBJECTIVE: VITAL SIGNS: Stable at 98, 75, 16, 94, 114/74. I's and O's is 1560 in and 2550 out. LUNGS: Clear. ABDOMEN: Soft. No rigidity. No rebound. Subjective area of discomfort in the lower quadrant suprapubic region with no rigidity, no rebound. This is mild; however, no significant CVA tenderness. PERTINENT LABORATORY DATA: Urine culture, preliminary negative. White count 7.3, hemoglobin 13, platelet 162. Creatinine 1.2. IMPRESSION: 1. Mr. Tyalor is a 73-year-old male with history of recurrent kidney stone, status post left ureteroscopy, laser lithotripsy of ureteral and multiple renal calculi. 2. History of benign prostatic hyperplasia with postop urinary retention of 700 mL with indwelling Romano catheter. 3. History of wide caliber bulbar urethral stricture on cystoscopy, 18 to 20- Telugu, in which catheter was passed with ease. 4. Presents due to left flank pain, feeling of malaise, nausea; however, this is improved with fluids and antibiotics. His urine culture is negative, there is hydronephrosis on his presenting CT scan with indwelling urethral Romano catheter. Although ascending pyelonephritis can cause hydronephrosis, he had an indwelling Romano catheter. I do not see any obvious ureteral stone of concern on CT. However, given hydronephrosis, it would be prudent to stage him with ureteroscopy and stent exchange prior to stent pull as an outpatient, as I do not have a clear source of his hydronephrosis, as culture is negative. patient informed. He agrees to proceed with cysto, left retrograde, ureteroscopy, stent exchange tomorrow. Continue meropenem and fluids. N.p.o. after midnight. Job ID: [id number] [facility]
[2018-07-20] MEDS: Meropenem 2 GM in Sodium Chloride 0.9% 100 ML IVPB SCH ×2 (09:38→15:57)
[2018-07-20] MEDS: Rosuvastatin 20 MG TAB PO SCH (21:28)
[2018-07-20] MEDS: Acetaminophen 500 MG TAB PO PRN (21:34)
[2018-07-21] MEDS: Sodium Chloride 0.9% 1,000 ML IV SCH ×3 (00:47→15:26)
[2018-07-21] MEDS: Meropenem 2 GM in Sodium Chloride 0.9% 100 ML IVPB SCH ×3 (00:47→15:26)
[2018-07-21 05:43] LABS: #Eosinphils 0.3 thou/uL (0.0-0.7); #Lymphocytes 1.3 thou/uL (1.20-3.40); #Monocytes 0.6 thou/uL (0.11-0.59); #Neutrophils 4.2 thou/uL (1.40-6.50); %Basophils 0.5 % (0.0-1.0); %Eosinophils 4.8 % (0.0-10.0); %Lymphocytes 20.8 % (21.0-51.0); %Monocytes 8.8 % (0.0-10.0); %Neutrophils 65.1 % (42.0-75.0); Hemoglobin 12.8 g/dL (14.0-18.0); Mean Corpuscular HGB CONC 33.2 g/dL (32.0-36.0); Mean Corpuscular Hemoglobin 28.8 pg (27.0-31.0); Mean Corpuscular Volume 86.7 fL (78.0-98.0); Mean Platelet Volume 7.9 fL (7.4-10.4); Platelet Count 166 thou/uL (130-400); RBC Distribution Width 12.1 % (11.5-14.5); Red Blood Cell (RBC) Count 4.46 mill/uL (4.70-6.10); White Blood Cell (WBC) Count 6.4 thou/uL (4.8-10.8)
[2018-07-21 06:06] LABS: Anion Gap 8 mmol/L (10-20); BUN (Urea Nitrogen) 16 mg/dL (8.4-25.7); Calc. Creatinine Clearance 0 mL/min (70-130); Calcium 9.9 mg/dL (7.8-10.44); Carbon Dioxide 28 mmol/L (23-31); Chloride 107 mmol/L (98-107); Estimated GFR-MDRD 55; Glucose 98 mg/dL (83-110); Potassium 4.4 mmol/L (3.5-5.1); Sodium 139 mmol/L (136-145)
--- NOTE | 2018-07-21 07:50 | PRG ---
DATE OF SERVICE: 07/21/2018 SUBJECTIVE: The patient is feeling well, has minimal left lower quadrant abdominal discomfort. Denies fever or chills. OBJECTIVE: VITAL SIGNS: Stable. He is afebrile. I's and O's; 2240 in, 4700 out. He is negative 2.4 L. ABDOMEN: Soft. No rigidity. No rebound. BACK: No CVA tenderness. GENITOURINARY: Urine output per Romano is clear. EXTREMITIES: No cyanosis, clubbing, or edema. PERTINENT LABORATORY DATA: White count 6, hemoglobin 12.8, platelet 166. Creatinine 1.29. Urine culture thus far negative. IMPRESSION AND PLAN: 1. Mr. Taylor is a 73-year-old male with history of recurrent kidney stone, recent left ureteroscopy, laser lithotripsy treatment of ureteral and multiple renal calculi. 2. Bilateral nonobstructing renal calculi. 3. Postoperative left hydronephrosis despite having indwelling ureteral stent. 4. History of BPH, postoperative urinary retention with indwelling Romano catheter. If urine culture is negative, we will proceed with diagnostic ureteroscopy and stent exchange. I informed him that we will keep him overnight after manipulation to ensure he has no fever or myalgia of concern. He is n.p.o. for OR today. Continue meropenem. Job ID: [id number]
[2018-07-21] MEDS: metFORMIN 500 MG TAB PO SCH ×2 (08:17→17:04)
[2018-07-21] MEDS: Tamsulosin HCl 0.4 MG CAP PO SCH ×2 (08:17→20:00)
[2018-07-21] MEDS: Febuxostat 40 MG TAB PO SCH (08:17)
[2018-07-21] MEDS: Dutasteride 0.5 MG CAP PO SCH (08:18)
[2018-07-21] MEDS: Docusate 100 MG CAP PO SCH ×2 (08:18→20:00)
[2018-07-21] MEDS: Famotidine/PF 20 mg/2ml Vial SLOW IVP SCH ×2 (08:20→20:00)
[2018-07-21] MEDS: Acetaminophen 500 MG TAB PO PRN (08:44)
[2018-07-21] MEDS ORDERED: Fentanyl 100 MCG/2 ML VIAL ONE (12:39)
[2018-07-21] MEDS ORDERED: Iothalamate Meglumine 60% 50 ML VIAL FS ONE (12:42)
[2018-07-21] MEDS ORDERED: Lidocaine Viscous Sol 2% 15 ml UD Cup ONE (13:11)
--- NOTE | 2018-07-21 14:19 | RAD ---
Retrograde ureterogram intraoperative fluoroscopy HISTORY: Ureteral obstruction. FINDINGS: Intraoperative fluoroscopy was provided for retrograde study is performed by Dr. Edmond flanagan. Single spot fluoroscopic image shows double pigtail stent overlying the course of the left ureter.
[2018-07-21] MEDS ORDERED: Promethazine HCl 25 MG/ML VIAL IM PRN (14:25)
[2018-07-21] MEDS ORDERED: Ondansetron HCl/PF 4 MG/2 ML Vial IVP PRN (14:25)
[2018-07-21] MEDS ORDERED: Promethazine HCl 25 MG/ML VIAL SLOW IVP PRN (14:25)
--- NOTE | 2018-07-21 17:02 | OP ---
DATE OF PROCEDURE: 07/21/2018 PREOPERATIVE DIAGNOSES: 1. A 73-year-old male with history of recurrent kidney stone, status post left ureteroscopy, laser lithotripsy of ureteral, multiple renal calculi. 2. Bilateral nonobstructing renal calculi. 3. Left hydronephrosis. 4. Postop urinary retention 700 mL with indwelling Romano catheter, history of bilobar hyperplasia of the prostate. POSTOPERATIVE DIAGNOSES: 1. A 73-year-old male with history of recurrent kidney stone, status post left ureteroscopy, laser lithotripsy of ureteral, multiple renal calculi. 2. Bilateral nonobstructing renal calculi. 3. Left hydronephrosis. 4. Postop urinary retention 700 mL with indwelling Romano catheter, history of bilobar hyperplasia of the prostate. PROCEDURES PERFORMED: 1. Cystoscopy, left retrograde pyelogram, 6 x 26 double-J ureteral stent exchange with distal tail in situ, flexible ureteroscopy, pyeloscopy, basket extraction of renal stone debris, basket extraction of adherent clot in the proximal ureter. 2. Evacuation of bladder stones, which are sedimentous fragmentation from his ureteral and renal calculi, 16-Niuean two-way 10 mL indwelling Romano catheter to gravity. ANESTHESIA: General. ESTIMATED BLOOD LOSS: Minimal. IV FLUIDS: 800 mL. COMPLICATIONS: None apparent. SPECIMEN: None. INTRAOPERATIVE FINDINGS: 1. Previous bilobar hyperplasia of the prostate. 2. Multiple sedimentous small stone debris within the bladder consistent with prior ureteroscopy, laser lithotripsy of multiple kidney stones. 3. Indwelling ureteral stent in good position. 4. Adherent left proximal ureteral blood clot which was removed. 5. Small mucosal flap in the left distal ureter 6. No evidence of ureteral perforation, no ureteral stricture INDICATIONS FOR PROCEDURE AND HISTORY: Mr. Taylor is a 73-year-old pleasant male with history of recurrent kidney stone. He recently called our office due to left flank pain as he was passing a left ureteral calculi. He desired to proceed with ureteral renal stone treatment. Surgery was uneventful. He had multiple renal calculi, which was extracted and laser lithotripsied. He does remain on CT multiple punctate renal lithiasis and this is consistent with a pyeloscopy. Pyeloscopy demonstrating multiple Hira plaques with a stone seen in the interface of the renal papilla that were amendable to be lasered and extractive work. He presents today for ureteroscopy as he has hydronephrosis on CT with no evidence of ureteral calculi and has an indwelling Romano catheter. DESCRIPTION OF PROCEDURE: After an informed consent was signed, the patient taken to the operating room, placed in a dorsal lithotomy position with the genital area prepped and draped in the usual surgical sterile fashion. Broad-spectrum antibiotic was provided. His urine culture finalized negative. A 21-Niuean cystoscope was utilized for cystoscopy. Previously appreciated bulbar stricture is no longer present and appeared to be passively dilatated. Prostatic urethra again demonstrated moderate severe bilobar hyperplasia of the prostate with high median bar, however, no evidence of intravesical median lobe. UOs are about 3 mm away from the bladder neck. There was multiple sedimentous debris of the stone fragments from prior laser lithotripsy of his renal calculi. These are small in caliber. I did Ellik evacuate his bladder and got some of the stone sediments out, what remained in the bladder a punctate and they were too small to Ellik or basket extract. He will most likely urinate these out at a later time. At this time, the pre-existing ureteral stent was removed to the level of the meatus and a 0.35 Sensor wire was passed through the stent without difficulty to the level of the left upper pole. A 10-Niuean dual-lumen access sheath was then passed over the guidewire without any issues to the level of the UPJ. Retrograde pyelogram demonstrated proper placement of the wire and a second safety wire 0.35 Super Stiff was placed. At this time , I gently passed an 11/13-Niuean 46 navigator, however, there was a somewhat resistance at the level of the mid distal ureter; therefore, I did not forcibly engage. At this time, we converted to a flexible ureteroscope which was passed over the Super Stiff wire and surveillance of the collecting system, ureter was performed. The collecting system was surveyed, which demonstrated multiple tiny punctate stone debris, however, these are very small in nature. Again, as previous, there were multiple stone debris in the renal papilla junction consistent with Hira plaque stones. We did see an adherent clot in the proximal ureter at the level of the proximal ureter. There was a small mucosal flap in the distal ureter on ureteroscopy, which was nonobstructing with no evidence of ureteral perforation. At this time, as there was some stone nidus, I did make a decision as there was no evidence of ureteral stone or trauma to the ureter. An 11/13-Niuean 46 cm navigator was then gently passed and this did pass without significant issues. We repeated the ureteroscopy and there were some stone nidus that I had basket extracted, however, very small. We surveyed the collecting system and the residual stones are either too small to basket extract, or laser; and the multiple renal papilla interface stones are not amenable to treatment as they are within the papilla. We surveyed the ureter again, adherent clot was removed with the basket extraction intact. We surveyed the ureter demonstrating no evidence of stone nidus, stricture, or obstructing ureteral mucosa flap of concern. A 6 x 26 double-J ureteral stent was passed. Distal string was left in situ. I tried to basket extract the tiny stone fragments in the bladder in a dependent position, however, they were too small to basket extract. Those that were amendable to be Ellik evacuated were Ellik evacuated. There was sedimentous debris and he will most likely void them out at a later time. As he did have postop urinary retention on previous ureteroscopy, I did place a 16-Niuean 10 mL Romano catheter which passed without significant issues. 10 mL insufflated. He does have some hematuria component due to surgical intervention. I will keep the patient overnight on fluids, monitor for recurrence of flank discomfort of concern. It would be prudent to leave an indwelling ureteral stent for minimum 2 weeks given recent repeat instrumentation. I will consider a voiding trial next week however. He is to continue his Avodart, Flomax b.i.d. Job ID: [id number] [facility]
[2018-07-21] MEDS: Rosuvastatin 20 MG TAB PO SCH (20:00)
[2018-07-22] MEDS: Meropenem 2 GM in Sodium Chloride 0.9% 100 ML IVPB SCH ×2 (00:08→08:14)
[2018-07-22] MEDS: Sodium Chloride 0.9% 1,000 ML IV SCH ×2 (01:40→08:16)
[2018-07-22 05:21] LABS: Hemoglobin 13.9 g/dL (14.0-18.0); Mean Corpuscular HGB CONC 33.8 g/dL (32.0-36.0); Mean Corpuscular Hemoglobin 29.3 pg (27.0-31.0); Mean Corpuscular Volume 86.6 fL (78.0-98.0); Mean Platelet Volume 7.9 fL (7.4-10.4); Platelet Count 198 thou/uL (130-400); Red Blood Cell (RBC) Count 4.76 mill/uL (4.70-6.10); White Blood Cell (WBC) Count 14.2 thou/uL (4.8-10.8)
[2018-07-22 05:42] LABS: Anion Gap 11 mmol/L (10-20); BUN (Urea Nitrogen) 15 mg/dL (8.4-25.7); Calc. Creatinine Clearance 0 mL/min (70-130); Carbon Dioxide 24 mmol/L (23-31); Chloride 106 mmol/L (98-107); Estimated GFR-MDRD 58; Glucose 149 mg/dL (83-110); Sodium 137 mmol/L (136-145)
[2018-07-22] MEDS: Tamsulosin HCl 0.4 MG CAP PO SCH (08:15)
[2018-07-22] MEDS: metFORMIN 500 MG TAB PO SCH (08:15)
[2018-07-22] MEDS: Docusate 100 MG CAP PO SCH (08:15)
[2018-07-22] MEDS: Dutasteride 0.5 MG CAP PO SCH (08:15)
[2018-07-22] MEDS: Febuxostat 40 MG TAB PO SCH (08:15)
[2018-07-22] MEDS: Famotidine/PF 20 mg/2ml Vial SLOW IVP SCH (08:16)
[2018-07-22 11:41] VITALS: BP 116/80; TEMP 97.9
--- NOTE | 2018-07-23 10:34 | DIS ---
DATE OF ADMISSION: 07/19/2018 DATE OF DISCHARGE: 07/22/2018 ADMITTING DIAGNOSES: Status post left ureteroscopy, laser lithotripsy with postop hydronephrosis. DISCHARGE DIAGNOSES: Status post left ureteroscopy, laser lithotripsy with postop hydronephrosis. CONDITION: Home, stable. DISCHARGE INSTRUCTIONS: No heavy lifting or strenuous activity, the patient discharged with indwelling urethral Romano catheter due to history of postop urinary retention. DISCHARGE MEDICATIONS: 1. Omnicef 300 mg one p.o. b.i.d. for 14 days. 2. Refill prescription for his Flomax 0.4 mg one p.o. b.i.d., #60. 3. Refill for Avodart 0.5 mg, #30 one p.o. daily. 4. Myrbetriq 50 mg #4 one p.o. daily. He is to stop one to two days prior to his appointment with me for a voiding trial. 5. AZO p.r.n. 6. Colace p.r.n. 7. The patient has a prescription for narcotics at home. INPATIENT PROCEDURES: Cystoscopy, left retrograde pyelogram, 6 x 26 double-J ureteral stent exchange, ureteroscopy, pyeloscopy, basket extraction of stone debris, evacuation of bladder stones. BRIEF HOSPITAL COURSE: Mr. Taylor is a pleasant 73-year-old male with history of recurrent kidney stones. He recently called my office as he was traveling out of the area and had flank pain, and a CT at an outside facility demonstrated a mid to distal ureteral calculi with hydronephrosis. He is known to have multiple bilateral nonobstructing renal calculi. He initially underwent stent placement, as culture was not finalized and subsequently with culture negative labs. He underwent ureteroscopy, laser lithotripsy of ureteral, and multiple renal calculi and basket extraction. He has significant stone burden at the level of the renal papilla consistent with renal stone burden. Some of his stones were extracted as they were adherent to the renal papilla, easily basket extracted. He presented to my office as he had sensation of myalgia, however, no fever. He related left lower quadrant abdominal discomfort with no fever per se. He was admitted due to diabetes with decreased oral intake and CT demonstrating hydronephrosis despite having no ureteral calculi adjacent to the ureteral stent. We watched him with followup urine culture finalized, negative. We subsequently underwent ureteroscopy for staging to rule out occult stone nidus, possible malfunctioning ureteral stent. Cystoscopy demonstrated multiple stone debris, which he had passed from the laser lithotripsy in the bladder, ureteroscopy demonstrated no evidence of ureteral trauma, perforation, or stricture. There was an adherent clot in the proximal ureter which was extracted. I did basket some residual stones in the left kidney. However, the stones that remained in the kidney are too small to basket a laser lithotripsy. Subsequently, he has done well, and he has not required any pain medication postop and desires to be discharged home. His discharge white count is mildly elevated to 14, from his baseline. However, as he is clinically improved in which he states that he has felt well. This is the best he has felt over the last 3 weeks with urine output clear with no fever. I will discharge him with empiric antibiotics for 14 days. He will follow up with me on July 27 at 9:15 for a catheter voiding trial. I would like to leave his indwelling ureteral stent for a course of 2 weeks given the above intervention to allow more stone debris to pass as possible. He agrees. Tentative cysto stent pull will be scheduled for August 03 at 8 a.m. Condition stable. He is informed to call me if significant blood per catheter, flank pain, fever, myalgia of concern. His urethral Romano catheter is converted to leg bag. The patient advised regarding instruction regarding gravity bag use. Job ID: [id number] MTD[facility]
== END 2018-07-22 12:20 | disposition home or self-care (01) | DRG 661 ==
LOC: ERS 09:08 → SURG B 12:03
PROVIDERS: ADMIT Urology; ATTEND Urology
PROC: 0T778DZ Dilation of Left Ureter with Intraluminal Device, Via Natural or Artificial Opening Endoscopic (ICD-10-PCS; principal; 2018-07-19)
PROC: 0TCB8ZZ Extirpation of Matter from Bladder, Via Natural or Artificial Opening Endoscopic (ICD-10-PCS; 2018-07-19)
PROC: 0TP98DZ Removal of Intraluminal Device from Ureter, Via Natural or Artificial Opening Endoscopic (ICD-10-PCS; 2018-07-19)
PROC: BT1B1ZZ Fluoroscopy of Bladder and Urethra using Low Osmolar Contrast (ICD-10-PCS; 2018-07-19)
PROC: 0TC78ZZ Extirpation of Matter from Left Ureter, Via Natural or Artificial Opening Endoscopic (ICD-10-PCS; 2018-07-21)
DX: N13.2 Hydronephrosis with renal and ureteral calculous obstruction (principal); E78.5 Hyperlipidemia, unspecified; I12.9 Hypertensive chronic kidney disease with stage 1 through stage 4 chronic kidney disease, or unspecified chronic kidney disease; E11.22 Type 2 diabetes mellitus with diabetic chronic kidney disease; N18.9 Chronic kidney disease, unspecified; N40.1 Benign prostatic hyperplasia with lower urinary tract symptoms; R33.8 Other retention of urine; M10.9 Gout, unspecified
CPT/HCPCS: 36415; 36416; 74018; 74176; 74420; 80048; 80053; 81003; 81015; 83605; 83690; 85025; 85027; 87086; 96361; 96374; 96375; C1758; C1769; J0696; J2185; J2270; J2405; J3010; J3490; Q9961; S0028

== ENCOUNTER 2018-08-02 08:46 | Outpatient (CLI) | payer MEDICARE ==
--- NOTE | 2018-08-02 09:07 | RAD ---
EXAM: XR Abdomen 1 View/KUB PROVIDED CLINICAL HISTORY: Renal calculi. COMPARISON: 07/19/2018. FINDINGS: Left ureteral stent remains in place. Multiple calcifications again overlie each renal shadow; althou gh, the right renal shadow is mostly obscured by bowel gas. No definite calculus is seen along the course of the left ureteral stent. Phleboliths are again seen in the pelvis. Bowel gas pattern is non specific. IMPRESSION: Stable abdomen with bilateral nephrolithiasis and left ureteral stent.
== END 2018-08-02 08:47 | disposition home or self-care (01) ==
LOC: RAD 08:46
PROVIDERS: ATTEND Urology
DX: N20.0 Calculus of kidney (principal); Z96.0 Presence of urogenital implants
CPT/HCPCS: 74018

== ENCOUNTER 2018-09-06 11:29 | Outpatient (CLI) | payer MEDICARE ==
--- NOTE | 2018-09-06 12:59 | RAD ---
RADIOGRAPH ABDOMEN 1 VIEWS: 09/06/18 HISTORY: 73-year-old male with renal calculi. COMPARISON: 08/02/18. FINDINGS: Left ureteral stent has been removed. Large number of small - tiny calculi overlying the bilateral re nal upper, mid and lower pole shadows. Normal bowel gas pattern. IMPRESSION: 1. Extensive bilateral nephrolithiasis (calculi of kidney). 2. Status post removal of left ureteral stent. 1. POS: [facility]
== END 2018-09-06 11:30 | disposition home or self-care (01) ==
LOC: RAD 11:29
PROVIDERS: ATTEND Urology
DX: N20.0 Calculus of kidney (principal); Z98.890 Other specified postprocedural states
CPT/HCPCS: 36415; 74018; 80053; 80061; 81001; 82043; 83036; 84153; 84154; 85025; 87086

== ENCOUNTER 2018-10-11 09:23 | Outpatient (CLI) | payer MEDICARE ==
--- NOTE | 2018-10-11 10:06 | ULT ---
US Renal Bilateral STANDARD: 10/11/2018 12:00 AM CLINICAL HISTORY: Renal calculi. STUDY: Renal ultrasound COMPARISON: None. FINDINGS: Right kidney: Echogenicity: Normal. Masses/cysts: None. Hydronephrosis: None. Calcifications: Multiple calculi measuring up to 5 mm in size Length: 11.4 cm Left kidney: Echogenicity: Normal. Masses/cysts: None. Hydronephrosis: None. Calcifications: Multiple shadowing calculi measuring up to 4 mm in size. Length: 10.8 cm Limited visualization of the urinary bladder is unremarkable. IMPRESSION: Bilateral nonobstructing renal calculi
== END 2018-10-11 09:24 | disposition home or self-care (01) ==
LOC: BICULT 09:23
PROVIDERS: ATTEND Urology
DX: N20.0 Calculus of kidney (principal)
CPT/HCPCS: 76770

== ENCOUNTER 2018-10-30 07:18 | Outpatient (CLI) | payer MEDICARE ==
--- NOTE | 2018-10-30 08:43 | RAD ---
ABDOMEN 1 VIEW: HISTORY: Renal calculi. COMPARISON: Radiograph 09/06/2018. FINDINGS: There are phleboliths in the pelvis. Mild vascular calcifications. Diffuse bilateral renal calculi are similar. Moderate facet arthrosis lower lumbar spine. Advanced degenerative disease of both SI joints. No di lated air-filled loops of large or small bowel. IMPRESSION: Similar appearance to bilateral extensive renal calculi. POS: [facility]
== END 2018-10-30 07:19 | disposition home or self-care (01) ==
LOC: RAD 07:18
PROVIDERS: ATTEND Urology
DX: N20.0 Calculus of kidney (principal)
CPT/HCPCS: 74018

== ENCOUNTER 2019-08-31 09:27 | Outpatient (CLI) | payer MEDICARE ==
--- NOTE | 2019-08-31 09:55 | RAD ---
EXAM: Single view of the abdomen HISTORY: Kidney stones COMPARISON: 10/30/2018 FINDINGS: Single view of the abdomen shows a nonspecific, nonobstructive bowel gas pattern. There are stable small calcifications projecting over both renal shadows. Evaluation of the right kidney is limited secondary to overlying bowel gas. The bones are unremarkable. IMPRESSION: Bilateral nephrolithiasis
== END 2019-08-31 09:28 | disposition home or self-care (01) ==
LOC: BICRAD 09:27
PROVIDERS: ATTEND Urology
DX: N20.0 Calculus of kidney (principal); R33.9 Retention of urine, unspecified; R39.14 Feeling of incomplete bladder emptying; M10.9 Gout, unspecified
CPT/HCPCS: 36415; 74018; 80048; 81001; 83970; 84550; 87086

== ENCOUNTER 2020-02-28 10:15 | Outpatient (CLI) | payer MEDICARE ==
--- NOTE | 2020-02-28 10:44 | ULT ---
Renal sonogram HISTORY: Renal stones. FINDINGS: Right kidney measures up to 10.8 cm length. No solid mass or hydronephrosis. Multiple shado wing echogenicities within nondilated calyces, measuring up to 0.9 cm at the superior pole. A 0.8 cm cyst is noted at the mid cortex. Urinary bladder has normal appearance. The left kidney measures up to 10.8 cm length. Multiple shadowing echogenic stones within nondilated calyces, measuring up to 0.7 cm. A 1.0 cm cyst at the inferior pole. IMPRESSION : Multiple nonobstructing bilateral renal calculi.
--- NOTE | 2020-02-28 11:57 | RAD ---
ABDOMEN 1 VIEW: HISTORY: Renal calculi. COMPARISON: Radiograph 08/31/2019. FINDINGS: Bilateral renal calculi are present. The largest calculus on the right superior renal collecting apurva suring 7-8 mm. The largest on the left interpolar region measuring up to 4 mm. Numerous phleboliths in the pelvis are similar. No dilated loops of large or small bowel. Moderate degenerative changes of the lower lumbar spine. IMPRESSION: Bilateral nephrocalcinosis. POS: [facility]
== END 2020-02-28 10:16 | disposition home or self-care (01) ==
LOC: BICULT 10:15
PROVIDERS: ATTEND Urology
DX: N20.0 Calculus of kidney (principal); E83.59 Other disorders of calcium metabolism; N29 Other disorders of kidney and ureter in diseases classified elsewhere
CPT/HCPCS: 74018; 76770

== ENCOUNTER 2022-07-28 00:51 | Emergency (ER) | payer MEDICARE ==
[2022-07-28 01:31] LABS: #Eosinphils 0.2 thou/uL (0.0-0.7); #Monocytes 0.5 thou/uL (0.11-0.59); %Basophils 0.4 % (0.0-1.0); %Eosinophils 1.9 % (0.0-10.0); %Neutrophils 78.5 % (42.0-75.0); Hemoglobin 14.2 g/dL (14.0-18.0); Mean Corpuscular HGB CONC 33.7 g/dL (32.0-36.0); Mean Corpuscular Hemoglobin 28.6 pg (27.0-31.0); Mean Corpuscular Volume 84.7 fl (78.0-98.0); Mean Platelet Volume 10.3 fL (7.4-10.4); Platelet Count 191 10x3/uL (130-400); RBC Distribution Width 13.2 % (11.5-14.5); Red Blood Cell (RBC) Count 4.97 mill/uL (4.70-6.10); White Blood Cell (WBC) Count 8.9 10x3/uL (4.8-10.8)
[2022-07-28] MEDS ORDERED: Ketorolac Tromethamine 30 MG/ML VIAL ONE (01:41)
[2022-07-28] MEDS ORDERED: Morphine 4 MG/ML VIAL ONE (01:41)
[2022-07-28 02:00] LABS: ALT (SGPT) 13 U/L (8-55); AST (SGOT) 17 U/L (5-34); Albumin 4.4 g/dL (3.4-4.8); Alkaline Phosphatase 56 U/L (40-110); Anion Gap 17 mmol/L (10-20); BUN (Urea Nitrogen) 14 mg/dL (8.4-25.7); Bilirubin, Total 0.6 mg/dL (0.2-1.2); Calc. Creatinine Clearance 0 mL/min (70-130); Calcium 10.2 mg/dL (7.8-10.44); Carbon Dioxide 20 mmol/L (23-31); Chloride 106 mmol/L (98-107); Estimated GFR 59; Globulin 3.1 g/dL (2.4-3.5); Glucose 174 mg/dL (83-110); Potassium 4.1 mmol/L (3.5-5.1); Protein, Total 7.5 g/dL (5.8-8.1); Sodium 139 mmol/L (136-145)
[2022-07-28 02:53] LABS: Bacteria/HPF None Seen HPF (None Seen); Bilirubin Negative (Negative); Blood, Urine 3+ (Negative); CAUTI Indications for Culture Dysuria,urgency,freq; Clarity Clear (Clear); Glucose, Urine (Dipstick) 50 mg/dL (Negative); Ketone, Urine Negative (Negative); Leukocyte Negative Leu/uL (Negative); Nitrite Negative (Negative); Protein, Urine (Dipstick) 10 mg/dL (Neg-Trace); RBC/HPF Greater than 50 HPF (0-3); Specific Gravity, Urine 1.016 (1.002-1.036); Squamous Epithelial 0-3 HPF (0-3); Urobilinogen Normal mg/dL (Less than 2); WBC/HPF 0-3 HPF (0-3)
[2022-07-28 02:56] LABS: Urine Culture Reflex No No
== END 2022-07-28 03:34 | disposition home or self-care (01) ==
LOC: ERS 00:51
DX: N13.2 Hydronephrosis with renal and ureteral calculous obstruction (principal); E11.9 Type 2 diabetes mellitus without complications; Z79.84 Long term (current) use of oral hypoglycemic drugs; Z79.899 Other long term (current) drug therapy
CPT/HCPCS: 36415; 74176; 80053; 81001; 83735; 85025; 87086; 96374; 96375; J1885; J2270

== ENCOUNTER 2022-08-09 07:13 | Day surgery (SDC) | payer MEDICARE ==
[2022-08-02 11:19] VITALS: BMI 26.9
[2022-08-09] MEDS ORDERED: cefTRIAXone (ROCEPHIN) 2 GM VIAL ONE (09:32)
[2022-08-09] MEDS ORDERED: Sodium Chloride 0.9% 100 ML ONE (09:32)
[2022-08-09] MEDS ORDERED: Iopamidol 30 ML ONE (10:14)
[2022-08-09] MEDS ORDERED: Fentanyl 250 MCG/5 ML VIAL ONE (10:35)
[2022-08-09] MEDS ORDERED: Lidocaine 1% PF 5 ML VIAL ONE (10:38)
[2022-08-09] MEDS ORDERED: Rocuronium Bromide 10 MG/ML (10ML VIAL) ONE (10:38)
[2022-08-09] MEDS ORDERED: PROPOFOL 200 MG/20 ML VIAL ONE (10:38)
[2022-08-09] MEDS ORDERED: NEOSTIGMINE 3 MG/3 ML SYR 3 MG/3 ML SYRINGE ONE (10:38)
[2022-08-09] MEDS ORDERED: Dexamethasone 20 MG/5 ML VIAL ONE (10:38)
[2022-08-09] MEDS ORDERED: PHENYLEPHRINE-NS 100 MCG/ML 10 ML SYRINGE ONE (10:38)
[2022-08-09] MEDS ORDERED: Ondansetron PF 4 MG/2 ML Vial ONE (10:38)
[2022-08-09] MEDS ORDERED: Glycopyrrolate 0.2 MG/ML 5 ML SYRINGE ONE (10:38)
[2022-08-09] MEDS ORDERED: SUGAMMADEX SODIUM 200 MG/2 ML VIAL ONE (12:02)
[2022-08-09] MEDS ORDERED: Oxybutynin 5 MG TAB ONE (12:42)
[2022-08-09] MEDS ORDERED: Phenazopyridine HCl 100 MG TAB ONE (12:42)
[2022-08-09] MEDS ORDERED: fentaNYL 50 mcg/mL 1 mL Vial ONE ×2 (13:00→13:22)
[2022-08-09] MEDS ORDERED: HYDROcodone/Acetaminophen 5/325 mg Tablet ONE (14:18)
== END 2022-08-09 14:40 | disposition home or self-care (01) ==
LOC: SDC 07:13
PROVIDERS: ATTEND Urology
PROC: 0TC18ZZ Extirpation of Matter from Left Kidney, Via Natural or Artificial Opening Endoscopic (ICD-10-PCS; principal; 2022-08-09)
PROC: 0TC08ZZ Extirpation of Matter from Right Kidney, Via Natural or Artificial Opening Endoscopic (ICD-10-PCS; 2022-08-09)
PROC: 0T788DZ Dilation of Bilateral Ureters with Intraluminal Device, Via Natural or Artificial Opening Endoscopic (ICD-10-PCS; 2022-08-09)
DX: N13.2 Hydronephrosis with renal and ureteral calculous obstruction (principal); R39.14 Feeling of incomplete bladder emptying; N40.1 Benign prostatic hyperplasia with lower urinary tract symptoms; E78.5 Hyperlipidemia, unspecified; N18.30 Chronic kidney disease, stage 3 unspecified; N35.912 Unspecified bulbous urethral stricture, male; E83.52 Hypercalcemia; N48.6 Induration penis plastica; E11.22 Type 2 diabetes mellitus with diabetic chronic kidney disease; M10.9 Gout, unspecified; H91.93 Unspecified hearing loss, bilateral; J30.2 Other seasonal allergic rhinitis; M54.41 Lumbago with sciatica, right side; M54.42 Lumbago with sciatica, left side; Z87.891 Personal history of nicotine dependence; Z79.899 Other long term (current) drug therapy
CPT/HCPCS: 52356; 74018; 74420; 82365; C1747; C1758; C1769; C2617; J3010; 88300; J0696; J1100; J2405; J2704; J3490; Q9967

== ENCOUNTER 2022-11-29 14:09 | Outpatient (CLI) | payer MEDICARE ==
[2022-11-29 15:09] LABS: Hematocrit 45.4 % (38.8-50.0); Hemoglobin 14.9 g/dL (13.5-17.5); Mean Corpuscular HGB CONC 32.8 g/dL (32.0-36.0); Mean Corpuscular Hemoglobin 27.8 pg (27.0-33.0); Mean Corpuscular Volume 84.7 fl (81.2-95.1); Mean Platelet Volume 10.4 fl (7.4-10.4); Platelet Count 165 10x3/uL (150-450); RBC Distribution Width 13.5 % (11.5-14.5); Red Blood Cell (RBC) Count 5.36 10x6/uL (4.32-5.72)
[2022-11-29 15:23] LABS: Bilirubin Neg (Negative); Blood, Urine Negative (Negative); Glucose, Urine (Dipstick) 100 mg/dL (Negative); Ketone, Urine Negative (Negative); Leukocyte Negative (Negative); Nitrite Negative (Negative); Protein, Urine (Dipstick) Negative (Neg-Trace); Urobilinogen Normal mg/dL (Less than 2)
[2022-11-29 15:28] LABS: PTT 28.7 sec (22.0-33.0); Prothrombin Time 10.3 sec (9.5-12.1)
[2022-11-29 15:32] LABS: Anion Gap 14 mmol/L (10-20); BUN (Urea Nitrogen) 15 mg/dL (8.4-25.7); Calc. Creatinine Clearance 0 mL/min (70-130); Calcium 10.4 mg/dL (7.8-10.44); Carbon Dioxide 25 mmol/L (23-31); Chloride 105 mmol/L (98-107); Estimated GFR 66; Glucose 156 mg/dL (83-110); Potassium 3.8 mmol/L (3.5-5.1); Sodium 140 mmol/L (136-145)
[2022-11-29 15:36] LABS: Clarity Clear (Clear); RBC/HPF None Seen HPF (0-3); Squamous Epithelial 0-3 HPF (0-3); WBC/HPF 0-3 HPF (0-3)
[2022-11-29 15:37] LABS: Bacteria/HPF None Seen HPF (None Seen)
== END 2022-11-29 14:10 | disposition home or self-care (01) ==
LOC: LABBT 14:09
PROVIDERS: ATTEND Urology
DX: Z01.818 Encounter for other preprocedural examination (principal); Z12.5 Encounter for screening for malignant neoplasm of prostate; E13.9 Other specified diabetes mellitus without complications; E83.52 Hypercalcemia; N20.2 Calculus of kidney with calculus of ureter; M10.9 Gout, unspecified; N40.1 Benign prostatic hyperplasia with lower urinary tract symptoms; N48.6 Induration penis plastica; N35.912 Unspecified bulbous urethral stricture, male; N35.919 Unspecified urethral stricture, male, unspecified site; R33.9 Retention of urine, unspecified; R39.14 Feeling of incomplete bladder emptying; Z87.442 Personal history of urinary calculi
CPT/HCPCS: 80048; 81001; 83970; 85027; 85610; 85730; 87086; 93005; 93010

== ENCOUNTER 2022-12-08 06:37 | Day surgery (SDC) | payer MEDICARE ==
[2022-11-29 14:54] VITALS: BMI 29.5
[2022-12-08] MEDS ORDERED: LevoFLOXacin 500 mg/D5W 100 ML BAG ONE (07:08)
[2022-12-08] MEDS ORDERED: fentaNYL 50 mcg/mL 1 mL Vial ONE (07:29)
[2022-12-08] MEDS ORDERED: SUGAMMADEX SODIUM 200 MG/2 ML VIAL ONE (07:30)
[2022-12-08] MEDS ORDERED: Iopamidol 30 ML ONE (09:26)
[2022-12-08] MEDS ORDERED: Phenazopyridine HCl 100 MG TAB ONE (09:59)
[2022-12-08] MEDS ORDERED: Oxybutynin 5 MG TAB ONE (09:59)
[2022-12-08] MEDS ORDERED: HYDROcodone/Acetaminophen 5/325 mg Tablet ONE (10:54)
== END 2022-12-08 11:50 | disposition home or self-care (01) ==
LOC: SDC 06:37
PROVIDERS: ATTEND Urology
PROC: 0TC68ZZ Extirpation of Matter from Right Ureter, Via Natural or Artificial Opening Endoscopic (ICD-10-PCS; principal; 2022-12-08)
PROC: 0T768DZ Dilation of Right Ureter with Intraluminal Device, Via Natural or Artificial Opening Endoscopic (ICD-10-PCS; 2022-12-08)
DX: N35.919 Unspecified urethral stricture, male, unspecified site (principal); N20.2 Calculus of kidney with calculus of ureter; N40.1 Benign prostatic hyperplasia with lower urinary tract symptoms; N18.30 Chronic kidney disease, stage 3 unspecified; E11.22 Type 2 diabetes mellitus with diabetic chronic kidney disease; M10.9 Gout, unspecified; H91.90 Unspecified hearing loss, unspecified ear; J30.2 Other seasonal allergic rhinitis; M54.42 Lumbago with sciatica, left side; Z87.891 Personal history of nicotine dependence; Z79.899 Other long term (current) drug therapy
CPT/HCPCS: 52356; 74018; 74420; J3010; C1769; C2617; J1956; Q9967

== ENCOUNTER 2022-12-15 08:49 | Outpatient (CLI) | payer MEDICARE | END 2022-12-15 08:50 | disposition home or self-care (01) | LOC: BICRAD 08:49 | PROVIDERS: ATTEND Urology | DX: N20.0 Calculus of kidney (principal); Z96.0 Presence of urogenital implants | CPT/HCPCS: 74018 ==

== ENCOUNTER 2023-02-28 13:04 | Outpatient (CLI) | payer MEDICARE | END 2023-02-28 13:05 | disposition home or self-care (01) | LOC: BICULT 13:04 | PROVIDERS: ATTEND Urology | DX: N20.0 Calculus of kidney (principal); Z98.890 Other specified postprocedural states; Z96.0 Presence of urogenital implants; E11.65 Type 2 diabetes mellitus with hyperglycemia; E78.5 Hyperlipidemia, unspecified; R30.0 Dysuria | CPT/HCPCS: 36415; 74018; 76770; 80053; 80061; 81001; 83036; 87086 ==

== ENCOUNTER 2023-04-22 08:45 | Outpatient (CLI) | payer MEDICARE | END 2023-04-22 08:46 | disposition home or self-care (01) | LOC: BICCT 08:45 | PROVIDERS: ATTEND Urology | DX: N20.0 Calculus of kidney (principal); E83.52 Hypercalcemia | CPT/HCPCS: 74176 ==